=== PATIENT | female | born 1940 | race Caucasian/White ===

== ENCOUNTER 2021-06-02 10:44 | Emergency (ER) | payer OTHER ==
[~2021-06-02] VITALS: Ht 188 cm; Wt 120.2 kg
[~2021-06-02 10:44] MED LIST: TRAZ-471 PO
[2021-06-02 10:49] VITALS: BP 164/95
--- NOTE | 2021-06-02 10:54 | NUR ---
PT AMBULATED TO ROOM 7
[2021-06-02] MEDS ORDERED: KETOROLAC 60 MG/2 ML VIAL IM ONE (11:00)
--- NOTE | 2021-06-02 11:16 | NUR ---
80/F BIB SON WITH C/O BILATERAL KNEE PAIN X3 DAYS. PATIENT DENIES INJURY OR TRAUMA, STATING PAIN HAS BEEN WORSENING, REPORTS TAKING TYLENOL WITH MILD RELIEF. LEGS SHOW NO SIGNS OF REDNESS, SWELLING OR TENDERNESS. PATIENT ABLE TO AMBULATE WITHOUT ASSISTANCE BUT STATES WORSENS THE PAIN. PATIENT HAS GOOD ROM, EQUAL SENSATION AND PULSES BILATERALLY. PER PATIENTS SON, PATIENT IS GOING ON A PLANE LATER THIS WEEK AND THEY WANT TO R/O A POSSIBLE BLOOD CLOT. DENIES CP, SOB, FEVER OR CHILLS. MEDHX: HTN ALLERGIES: DENIES
--- NOTE | 2021-06-02 12:04 | NUR ---
PATIENT LEFT WITHOUT BEING SEEN BY DR. NEELY. NO FURTHER CARE PROVIDED FOR PATIENT.
== END 2021-06-02 12:04 | disposition left against medical advice (07) ==
LOC: MED 10:44
DX: M79.604 Pain in right leg (principal); M79.605 Pain in left leg; Z53.21 Procedure and treatment not carried out due to patient leaving prior to being seen by health care provider
CPT/HCPCS: 96372; J1885; 99283

== ENCOUNTER 2024-02-07 11:43 | Emergency (ER) | payer BC, OTHER ==
[~2024-02-07] VITALS: Ht 170.2 cm; Wt 109.1 kg
[2024-02-07 11:49] VITALS: BP 123/81; PULSE 63; RESP 17; TEMP 98.6; O2SAT 95
[2024-02-07 12:45] LABS: BASOPHILS % (AUTO) 0.5 % (0.0-2.0); EOSINOPHILS # (AUTO) 0.1 K/uL (0-0.4); EOSINOPHILS % (AUTO) 1.8 % (0.0-4.0); HEMATOCRIT 33.7 % (36-48); HEMOGLOBIN 11.3 g/dL (12.0-16.0); LYMPHOCYTES % (AUTO) 38.3 % (20.5-51.1); MEAN CORPUSCULAR HEMOGLOBIN 32 pg (27-31); MEAN CORPUSCULAR HGB CONC 34 g/dL (33-37); MEAN CORPUSCULAR VOLUME 96.2 fL (80-94); MONOCYTES # (AUTO) 0.5 K/uL (0.8-1.0); NEUTROPHILS # (AUTO) 2.7 K/uL (1.8-7.7); NEUTROPHILS % (AUTO) 50.4 % (42.2-75.2); PLATELET COUNT (AUTO) 188 K/uL (140-450); RED BLOOD CELL COUNT(AUTO) 3.51 MIL/uL (4.20-5.40); RED CELL DISTRIBUTION WIDTH 13.5 % (11.6-13.7); WHITE BLOOD COUNT (AUTO) 5.3 K/uL (4.8-10.8)
[2024-02-07 13:08] LABS: ALANINE AMINOTRANSFERASE 17 U/L (12-78); ALBUMIN 3.5 g/dL (3.4-5.0); ALKALINE PHOSPHATASE 61 U/L (50-136); ANION GAP 10.9 (8-16); ASPARTATE AMINOTRANSFERASE 18 U/L (15-37); CALCIUM 8.9 mg/dL (8.5-10.1); CARBON DIOXIDE 29.2 mmol/L (21-32); CHLORIDE 104 mmol/L (98-107); CREATININE 0.9 mg/dL (0.6-1.3); GLUCOSE 94 mg/dL (74-106); POTASSIUM 4.1 mmol/L (3.5-5.1); SODIUM SERUM 140 mmol/L (136-145); TOTAL BILIRUBIN 0.4 mg/dL (0.0-1.0); TOTAL PROTEIN, SERUM 7.3 g/dL (6.4-8.2); UREA NITROGEN, BLOOD 19 mg/dL (7-18)
[2024-02-07 13:26] LABS: INR 1.01 (0.8-1.2); PARTIAL THROMBOPLASTIN TIME 24.1 secs (22-35.6); PROTHROMBIN TIME 10.6 secs (10.8-13.4)
[2024-02-07 14:05] VITALS: BP 182/68; PULSE 53; RESP 17; TEMP 98.6; O2SAT 97
== END 2024-02-07 14:05 | disposition home or self-care (01) ==
LOC: MED 11:43
DX: M60.862 Other myositis, left lower leg (principal); I11.0 Hypertensive heart disease with heart failure; I50.9 Heart failure, unspecified; E11.9 Type 2 diabetes mellitus without complications; E78.5 Hyperlipidemia, unspecified; E03.9 Hypothyroidism, unspecified; Z79.899 Other long term (current) drug therapy
CPT/HCPCS: 36415; 80053; 83880; 85025; 85610; 85730; 93971; 99284; Q0092